=== PATIENT | male | born 1955 | race Caucasian/White ===

== ENCOUNTER 2022-06-08 13:54 | Emergency (ER) | payer MEDICARE, OTHER ==
[2022-06-08 14:31] VITALS: TEMP 98.2
[2022-06-08] MEDS ORDERED: SODIUM CHLORIDE 0.9% 1,000 ML IV STA ×2 (14:53→15:57)
--- NOTE | 2022-06-08 15:10 | ED ---
General Adult HPI - General Chief complaint: GI Bleed Stated complaint: Blood in stool Time Seen by Provider: 06/08/22 14:34 Source: patient, RN notes reviewed, old records reviewed Mode of arrival: ambulatory Limitations: no limitations - History of Present Illness Initial comments: Patient is a 67-year-old male with past medical history remarkable for diabetes, who presents emergency Department complaining of upper quadrant abdominal discomfort as well as dark tarry stools for 1-2 days. States the abdominal discomfort started yesterday, and he had 2 episodes of darker, tar-like stools. No history of blood in the stool. No history of being on blood thinners. No history of GI bleed. Denies any nausea or vomiting. Denies any kev abdominal pain. States is more significant discomfort in sensation. Denies any urinary complaints at this time. States the stools are normal, formed. Endorses mild weakness, denies lightheadedness. Denies shortness of breath, chest pain. Denies any other acute complaint. He presents for further evaluation at this time. Endorses decreased appetite and possible dehydration this time as well. - Related Data Home Medications Medication Instructions Recorded Confirmed Empagliflozin [Jardiance] 25 mg PO DAILY 06/08/22 06/08/22 Fenofibrate 160 mg PO DAILY 06/08/22 06/08/22 Glucosam/Dat-Msm1/C/Mitchell/Bosw 1 tab PO HS 06/08/22 06/08/22 [Eawrqqkstik-Mezmmjmbxie-JHP Tb] Insulin Glargine,Hum.rec.anlog 15 - 16 units SQ HS 06/08/22 06/08/22 [Lantus Solostar Pen] Montelukast Sodium [Singulair] 10 mg PO HS 06/08/22 06/08/22 [place]-3 Fatty Acids/Fish Oil 1 cap PO HS 06/08/22 06/08/22 [[place]-3 Fish Oil 1,200 mg Sfgl] Simvastatin [Zocor] 10 mg PO HS 06/08/22 06/08/22 glipiZIDE 10 mg PO BID 06/08/22 06/08/22 metFORMIN HCL [Glucophage] 1,000 mg PO BID 06/08/22 06/08/22 Previous Rx's Medication Instructions Recorded Pantoprazole [Protonix] 40 mg PO DAILY 7 Days #7 tab 06/08/22 Allergies Allergy/AdvReac Type Severity Reaction Status Date / Time No Known Allergies Allergy Verified 06/08/22 15:31 Review of Systems ROS Statement: Those systems with pertinent positive or pertinent negative responses have been documented in the HPI. Review of Systems: CONST: Denies fever EYES: Denies blurry vision ENT: Denies nasal congestion C/V: Denies Chest pain RESP: Denies shortness of breath GI: Endorses abdominal discomfort. : Denies dysuria SKIN: Denies rash. MSK: Denies joint pain. NEURO: Denies headache ROS Other: All systems not noted in ROS Statement are negative. Past Medical History Past Medical History: Diabetes Mellitus History of Any Multi-Drug Resistant Organisms: None Reported Past Surgical History: Orthopedic Surgery Additional Past Surgical History / Comment(s): ACL repair left leg, distal fibula surgery, bilatal bicep tendon repair, umbilical hernia surgery, inguinal hernia repair, right knee surgery, cyst on testical removed, Past Psychological History: Unable to Obtain Smoking Status: Never smoker Past Alcohol Use History: Occasional Past Drug Use History: None Reported General Exam - General Exam Comments Initial Comments: General: Appears in no acute distress. HEAD: Normal with no signs of head trauma. EYES: PERRLA, EOMI, conjunctiva normal, no discharge. ENT: Hearing grossly intact, normal oropharynx. Dry mucous membranes. RESPIRATORY: Clear breath sounds bilaterally. No wheezes, rales, or rhonchi. C/V: Regular rate and rhythm. S1 and S2 auscultated, no edema, peripheral pulses 2+ and intact throughout ABD: Abdomen is soft, nondistended. Mildly discomforting on palpation left lower quadrant but no obvious guarding, peritoneal signs, rebound tenderness. No CVA tenderness to percussion. Rectal exam performed in the presence of a staff member. Good rectal tone. No gross blood. No hemorrhoids. Stool was light brown in color. EXT: Normal range of motion, no obvious deformity SKIN: No rashes or lesions observed on exposed skin. NEURO: Alert and oriented 4. No focal deficits. Limitations: no limitations Course Vital Signs 06/08/22 06/08/22 14:24 18:00 Temperature 98.2 F 98.2 F Pulse Rate 81 76 Respiratory 18 16 Rate Blood Pressure 120/71 99/64 O2 Sat by Pulse 97 95 Oximetry Medical Decision Making - Medical Decision Making Based on the patient's presentation and physical exam, patient presented with left lower quadrant abdominal discomfort as well as darker stools that he describes as tolerated over the last day. States he does have less of an oral intake the last few days and I'm concerned for mild dehydration as well. Does have a history diverticulosis. Is not on blood thinners. I'm concerned for possible intra-abdominal pathology such as diverticulitis at this time. We will obtain abdominal laboratory studies to start, and unlikely CT imaging. He was in agreement this plan. Declines analgesia medications at this time. He will receive IV fluids. Vital signs within acceptable limits. EKG showed no signs of acute ischemia. Patient's laboratory studies returned and were remarkable for a normocytic anemia with hemoglobin was 12. No known comparison. Patient has a lactic acidosis of 3.3 likely secondary to dehydration. 4+ glucose in the urine. Occult blood is positive. He was a long delay in obtaining CT abdomen and pelvis secondary to higher acuity patients regarding the CT scanner. When it was finally obtained, it was interpreted by myself as showing no obvious hemorrhage. No obvious acute intrapelvic process. Radiology did note possible esophagitis as well as diverticulosis without diverticulitis. On reevaluation, patient's lactate has been reobtained and following a 1 L fluid bolus is improved to 2.1. I did discuss with the patient the results of his imaging as well as laboratory studies. I did offer him admission for hemoglobin trending as it does appear he may have a small GI bleed. There is no kev blood on rectal exam and no obvious bleeding on CT imaging. Vital signs have remained within normal limits since arrival. He is asymptomatic and denies any weakness, shortness of breath, lightheadedness. He has no evidence of symptomatic anemia. I do believe this is reasonable at this time. Strict re turn precautions were discussed. Expressed understanding. This does include symptomatic anemia, as well as worsening bleeding. She does have a follow-up appointment already with his physician on Saturday afternoon. Is currently Saturday evening. I will provide the patient with a prescription for Protonix. I instructed the patient to follow up with their PCP in the next 1-3 days. I provided contact information for follow up with GI. I explained that the patient should return to the emergency department if they experience any worsening symptoms. Strict return precautions were discussed with the patient. The patient expressed understanding of these instructions. I answered all questions that the patient had. The patient was discharged home in good condition with their prescriptions and follow up information. - Lab Data Result diagrams: 06/08/22 14:55 06/08/22 14:55 Lab Results 06/08/22 06/08/22 06/08/22 Range/Units 14:55 14:55 14:55 WBC 6.0 (3.8-10.6) k/uL RBC 3.81 L (4.30-5.90) m/uL Hgb 12.0 L (13.0-17.5) gm/dL Hct 34.9 L (39.0-53.0) % MCV 91.6 (80.0-100.0) fL MCH 31.4 (25.0-35.0) pg MCHC 34.3 (31.0-37.0) g/dL RDW 12.7 (11.5-15.5) % Plt Count 359 (150-450) k/uL MPV 7.6 Neutrophils % 66 % Lymphocytes % 20 % Monocytes % 7 % Eosinophils % 4 % Basophils % 1 % Neutrophils # 3.9 (1.3-7.7) k/uL Lymphocytes # 1.2 (1.0-4.8) k/uL Monocytes # 0.4 (0-1.0) k/uL Eosinophils # 0.3 (0-0.7) k/uL Basophils # 0.1 (0-0.2) k/uL PT 10.2 (9.0-12.0) sec INR 1.0 (<1.2) APTT 22.1 (22.0-30.0) sec Sodium (137-145) mmol/L Potassium (3.5-5.1) mmol/L Chloride (98-107) mmol/L Carbon Dioxide (22-30) mmol/L Anion Gap mmol/L BUN (9-20) mg/dL Creatinine (0.66-1.25) mg/dL Est GFR (CKD-EPI)AfAm (>60 ml/min/1.73 sqM) Est GFR (CKD-EPI)NonAf (>60 ml/min/1.73 sqM) Glucose (74-99) mg/dL Lactic Ac Sepsis Rflx Plasma Lactic Acid Shahid (0.7-2.0) mmol/L Calcium (8.4-10.2) mg/dL Total Bilirubin (0.2-1.3) mg/dL AST (17-59) U/L ALT (4-49) U/L Alkaline Phosphatase (38-126) U/L Total Protein (6.3-8.2) g/dL Albumin (3.5-5.0) g/dL Amylase (30-110) U/L Lipase (23-300) U/L Urine Color Light Yellow Urine Appearance Clear (Clear) Urine pH 5.0 (5.0-8.0) Ur Specific [place] 1.031 (1.001-1.035) Urine Protein Negative (Negative) Urine Glucose (UA) 4+ H (Negative) Urine Ketones Negative (Negative) Urine Blood Negative (Negative) Urine Nitrite Negative (Negative) Urine Bilirubin Negative (Negative) Urine Urobilinogen <2.0 (<2.0) mg/dL Ur Leukocyte Esterase Negative (Negative) Stool Occult Blood (Negative) Blood Type Blood Type Confirm Blood Type Recheck Bld Type Recheck Status Antibody Screen Spec Expiration Date 06/08/22 06/08/22 06/08/22 Range/Units 14:55 14:55 14:55 WBC (3.8-10.6) k/uL RBC (4.30-5.90) m/uL Hgb (13.0-17.5) gm/dL Hct (39.0-53.0) % MCV (80.0-100.0) fL MCH (25.0-35.0) pg MCHC (31.0-37.0) g/dL RDW (11.5-15.5) % Plt Count (150-450) k/uL MPV Neutrophils % % Lymphocytes % % Monocytes % % Eosinophils % % Basophils % % Neutrophils # (1.3-7.7) k/uL Lymphocytes # (1.0-4.8) k/uL Monocytes # (0-1.0) k/uL Eosinophils # (0-0.7) k/uL Basophils # (0-0.2) k/uL PT (9.0-12.0) sec INR (<1.2) APTT (22.0-30.0) sec Sodium 135 L (137-145) mmol/L Potassium 4.7 (3.5-5.1) mmol/L Chloride 103 (98-107) mmol/L Carbon Dioxide 24 (22-30) mmol/L Anion Gap 8 mmol/L BUN 41 H (9-20) mg/dL Creatinine 0.86 (0.66-1.25) mg/dL Est GFR (CKD-EPI)AfAm >90 (>60 ml/min/1.73 sqM) Est GFR (CKD-EPI)NonAf 89 (>60 ml/min/1.73 sqM) Glucose 251 H (74-99) mg/dL Lactic Ac Sepsis Rflx Plasma Lactic Acid Shahid 3.3 H* (0.7-2.0) mmol/L Calcium 9.2 (8.4-10.2) mg/dL Total Bilirubin 0.7 (0.2-1.3) mg/dL AST 39 (17-59) U/L ALT 24 (4-49) U/L Alkaline Phosphatase 54 (38-126) U/L Total Protein 6.3 (6.3-8.2) g/dL Albumin 4.0 (3.5-5.0) g/dL Amylase 76 (30-110) U/L Lipase 210 (23-300) U/L Urine Color Urine Appearance (Clear) Urine pH (5.0-8.0) Ur Specific Living[place] (1.001-1.035) Urine Protein (Negative) Urine Glucose (UA) (Negative) Urine Ketones (Negative) Urine Blood (Negative) Urine Nitrite (Negative) Urine Bilirubin (Negative) Urine Urobilinogen (<2.0) mg/dL Ur Leukocyte Esterase (Negative) Stool Occult Blood Positive (Negative) Blood Type Blood Type Confirm Blood Type Recheck Bld Type Recheck Status Antibody Screen Spec Expiration Date 06/08/22 06/08/22 06/08/22 Range/Units 14:56 15:00 15:42 WBC (3.8-10.6) k/uL RBC (4.30-5.90) m/uL Hgb (13.0-17.5) gm/dL Hct (39.0-53.0) % MCV (80.0-100.0) fL MCH (25.0-35.0) pg MCHC (31.0-37.0) g/dL RDW (11.5-15.5) % Plt Count (150-450) k/uL MPV Neutrophils % % Lymphocytes % % Monocytes % % Eosinophils % % Basophils % % Neutrophils # (1.3-7.7) k/uL Lymphocytes # (1.0-4.8) k/uL Monocytes # (0-1.0) k/uL Eosinophils # (0-0.7) k/uL Basophils # (0-0.2) k/uL PT (9.0-12.0) sec INR (<1.2) APTT (22.0-30.0) sec Sodium (137-145) mmol/L Potassium (3.5-5.1) mmol/L Chloride (98-107) mmol/L Carbon Dioxide (22-30) mmol/L Anion Gap mmol/L BUN (9-20) mg/dL Creatinine (0.66-1.25) mg/dL Est GFR (CKD-EPI)AfAm (>60 ml/min/1.73 sqM) Est GFR (CKD-EPI)NonAf (>60 ml/min/1.73 sqM) Glucose (74-99) mg/dL Lactic Ac Sepsis Rflx Y Plasma Lactic Acid Shahid (0.7-2.0) mmol/L Calcium (8.4-10.2) mg/dL Total Bilirubin (0.2-1.3) mg/dL AST (17-59) U/L ALT (4-49) U/L Alkaline Phosphatase (38-126) U/L Total Protein (6.3-8.2) g/dL Albumin (3.5-5.0) g/dL Amylase (30-110) U/L Lipase (23-300) U/L Urine Color Urine Appearance (Clear) Urine pH (5.0-8.0) Ur Specific [place] (1.001-1.035) Urine Protein (Negative) Urine Glucose (UA) (Negative) Urine Ketones (Negative) Urine Blood (Negative) Urine Nitrite (Negative) Urine Bilirubin (Negative) Urine Urobilinogen (<2.0) mg/dL Ur Leukocyte Esterase (Negative) Stool Occult Blood (Negative) Blood Type O Negative Blood Type Confirm O Negative Blood Type Recheck No Previous Record Bld Type Recheck Status CABO Indicated Antibody Screen NEGATIVE Spec Expiration Date 06/11/2022 - 2355 12/16/22 Range/Units 18:16 WBC (3.8-10.6) k/uL RBC (4.30-5.90) m/uL Hgb (13.0-17.5) gm/dL Hct (39.0-53.0) % MCV (80.0-100.0) fL MCH (25.0-35.0) pg MCHC (31.0-37.0) g/dL RDW (11.5-15.5) % Plt Count (150-450) k/uL MPV Neutrophils % % Lymphocytes % % Monocytes % % Eosinophils % % Basophils % % Neutrophils # (1.3-7.7) k/uL Lymphocytes # (1.0-4.8) k/uL Monocytes # (0-1.0) k/uL Eosinophils # (0-0.7) k/uL Basophils # (0-0.2) k/uL PT (9.0-12.0) sec INR (<1.2) APTT (22.0-30.0) sec Sodium (137-145) mmol/L Potassium (3.5-5.1) mmol/L Chloride (98-107) mmol/L Carbon Dioxide (22-30) mmol/L Anion Gap mmol/L BUN (9-20) mg/dL Creatinine (0.66-1.25) mg/dL Est GFR (CKD-EPI)AfAm (>60 ml/min/1.73 sqM) Est GFR (CKD-EPI)NonAf (>60 ml/min/1.73 sqM) Glucose (74-99) mg/dL Lactic Ac Sepsis Rflx Plasma Lactic Acid Shahid 2.1 H* (0.7-2.0) mmol/L Calcium (8.4-10.2) mg/dL Total Bilirubin (0.2-1.3) mg/dL AST (17-59) U/L ALT (4-49) U/L Alkaline Phosphatase (38-126) U/L Total Protein (6.3-8.2) g/dL Albumin (3.5-5.0) g/dL Amylase (30-110) U/L Lipase (23-300) U/L Urine Color Urine Appearance (Clear) Urine pH (5.0-8.0) Ur Specific [place] (1.001-1.035) Urine Protein (Negative) Urine Glucose (UA) (Negative) Urine Ketones (Negative) Urine Blood (Negative) Urine Nitrite (Negative) Urine Bilirubin (Negative) Urine Urobilinogen (<2.0) mg/dL Ur Leukocyte Esterase (Negative) Stool Occult Blood (Negative) Blood Type Blood Type Confirm Blood Type Recheck Bld Type Recheck Status Antibody Screen Spec Expiration Date - EKG Data -: EKG Interpreted by Me EKG Comments: 12-lead Electrocardiogram Interpretation Note EKG was reviewed and interpreted by myself. 12-lead ECG performed at 1632 is interpreted by me as revealing normal sinus rhythm at a rate of 71 beats per minute. Hazen is normal. MI interval is 149 ms, QRS durations 114 ms, QTc is 429 ms.. There were no ST or T wave abnormalities to suggest myocardial ischemia or injury. R wave progression across the precordium was satisfactory. By my interpretation this EKG is non-diagnostic for acute ischemia. No prior EKG for comparison. Disposition Clinical Impression: GI bleed, Dehydration Disposition: HOME SELF-CARE Condition: Good Instructions (If sedation given, give patient instructions): Gastrointestinal Bleeding (ED) Prescriptions: Pantoprazole [Protonix] 40 mg PO DAILY 7 Days #7 tab Is patient prescribed a controlled substance at d/c from ED?: No Referrals: Michael Lopez MD [Primary Care Provider] - 1-2 days Crissy Sharp MD [STAFF PHYSICIAN] - 1-2 days Time of Disposition: 19:25
[2022-06-08 15:20] LABS: Basophils # (A) 0.1 k/uL (0-0.2); Basophils % (A) 1 %; Eosinophils # (A) 0.3 k/uL (0-0.7); Eosinophils % (A) 4 %; HCT 34.9 % (39.0-53.0); Lymphocytes # (A) 1.2 k/uL (1.0-4.8); Lymphocytes % (A) 20 %; MCH 31.4 pg (25.0-35.0); MCHC 34.3 g/dL (31.0-37.0); MCV 91.6 fL (80.0-100.0); Mean Platelet Volume 7.6; Monocytes # (A) 0.4 k/uL (0-1.0); Monocytes % (A) 7 %; Neutrophils # (A) 3.9 k/uL (1.3-7.7); Neutrophils % (A) 66 %; Platelet Count 359 k/uL (150-450); RBC 3.81 m/uL (4.30-5.90); RDW 12.7 % (11.5-15.5)
[2022-06-08 15:30] LABS: Partial Thromboplastin Time 22.1 sec (22.0-30.0); Prothrombin Time 10.2 sec (9.0-12.0)
[2022-06-08 15:32] LABS: ALT 24 U/L (4-49); AST 39 U/L (17-59); African American GFR (CKD) >90 (>60 ml/min/1.73 sqM); Alkaline Phosphatase 54 U/L (38-126); Amylase 76 U/L (30-110); Anion Gap 8 mmol/L; Blood Urea Nitrogen 41 mg/dL (9-20); Calcium 9.2 mg/dL (8.4-10.2); Carbon Dioxide 24 mmol/L (22-30); Chloride 103 mmol/L (98-107); Glucose 251 mg/dL (74-99); Lipase 210 U/L (23-300); Non-African American GFR(CKD) 89 (>60 ml/min/1.73 sqM); Potassium 4.7 mmol/L (3.5-5.1); Sodium 135 mmol/L (137-145); Total Bilirubin 0.7 mg/dL (0.2-1.3); Total Protein 6.3 g/dL (6.3-8.2)
[2022-06-08 16:24] LABS: Appearance,Urine Clear (Clear); Bilirubin,Urine Negative (Negative); Blood,Urine Negative (Negative); Color,Urine Light Yellow; Glucose,Urine (UA) 4+ (Negative); Ketones,Urine Negative (Negative); Leukocyte Esterase,Urine Negative (Negative); Nitrite,Urine Negative (Negative); Protein,Urine Negative (Negative); Specific Gravity,Urine 1.031 (1.001-1.035); Urobilinogen,Urine <2.0 mg/dL (<2.0)
[2022-06-08] MEDS ORDERED: diphenhydrAMINE 50 MG/ML 1 ML VIAL IVP STA (16:56)
[2022-06-08] MEDS ORDERED: FAMOTIDINE 20 MG/2 ML VIAL IV STA (16:56)
[2022-06-08] MEDS ORDERED: methylPREDNISolone SOD SUCCI 125 MG/2 ML VIAL IV STA (16:56)
[2022-06-08 18:44] VITALS: BP 99/64; PULSE 76; RESP 16
--- NOTE | 2022-06-08 19:12 | CT ---
EXAMINATION TYPE: CT angio abdomen pelvis CT DLP: 1895 mGycm, Automated exposure control for dose reduction was used. DATE OF EXAM: 06/08/2022 6:17 PM COMPARISON: None. CLINICAL INDICATION:Male, 67 years old with history of gi bleed protocol and ischemic bowel eval, Cullen ck stool, and ischemic bowel evaluation. GII bleed protocol requested by Dr. Goel. TECHNIQUE: Multiple thin slice sub-millimeter images were obtained through the abdomen, pelvis, after administration of contrast. 3-D reconstructed images and maximum intensity projection images were o btained of the abdomen, pelvis CT Contrast: Contrast used:100 mL of Isovue 370 with IV Contrast, Oral contrast used: without Oral Contrast None FINDINGS: CTA Abdomen and pelvis: The abdominal aorta does not demonstrate aneurysmal dilatation. Atherosclero tic plaquing is identified within the abdominal aorta. The origins of the superior mesenteric artery , renal arteries, inferior mesenteric artery, and celiac axis are patent. The iliac vessels are norm al in morphology LOWER CHEST: No evidence of focal consolidation, pneumothorax or pleural effusion. The heart is mildl y enlarged for size. Atherosclerosis of the coronary arteries. Mild distal esophageal wall thickening up to 5 mm. LIVER: Unremarkable GALLBLADDER AND BILE DUCTS: Unremarkable. PANCREAS: Unremarkable. SPLEEN: Unremarkable. ADRENAL GLANDS: Unremarkable. KIDNEYS AND URETERS: No evidence of hydronephrosis or renal calculus. Left renal cyst. Peripelvic lef t renal cysts are present. PELVIS BLADDER: Unremarkable REPRODUCTIVE: Unremarkable. ABDOMEN & PELVIS STOMACH AND BOWEL: No evidence of bowel obstruction. Scattered clonic diverticula. PERITONEUM: No evidence of pneumoperitoneum or free fluid. Scattered pelvic phleboliths are present. VASCULATURE: No evidence of aortic aneurysm. MUSCULOSKELETAL: No acute osseous abnormalities, remote injury to the pubic symphysis on the left pos sibly muscle injury to origin. LYMPH NODES: No gross evidence for lymphadenopathy. SOFT TISSUE/ABDOMINAL WALL: Unremarkable IMPRESSION 1. No evidence for gastrointestinal hemorrhage. There remains concern consider nuclear medicine tagg ed red blood cell scan. 2. No evidence of vascular occlusion or aneurysm. 3. Atherosclerotic disease involving abdominal aorta and lower extremity vasculature. 4. Circumferential wall thickening the distal esophagus correlate for esophagitis. 5. Extensive colonic diverticulosis.
== END 2022-06-08 19:42 | disposition home or self-care (01) ==
LOC: EC 13:54
DX: K92.2 Gastrointestinal hemorrhage, unspecified (principal); E86.0 Dehydration; E11.9 Type 2 diabetes mellitus without complications; Z79.4 Long term (current) use of insulin; Z79.899 Other long term (current) drug therapy
CPT/HCPCS: 36415; 93005; 86900; 86901; 80053; 82150; 83605; 83690; 85025; 85610; 85730; 86850; 82272; 81003; 74174; 99285; 96374; 96375 ×2; 96361 ×2; J1200; J2930; Q9967

== ENCOUNTER 2022-07-20 11:37 | Day surgery (SDC) | payer MEDICARE, OTHER ==
[~2022-07-20 11:37] MED LIST: LACTATED RINGERS 1,000 ML IV SCH; LIDOCAINE 1% (10MG/ML) FOR IV START INTRADERMA PRN
[2022-07-20 13:35] VITALS: RESP 16; TEMP 97.4
[2022-07-20 13:39] LABS: Glucose,Whole Blood 105 mg/dL (70-110)
[2022-07-20] MEDS ORDERED: PROPOFOL 10 MG/ML 20 ML VIAL IV ONE (14:14)
[2022-07-20] MEDS ORDERED: LIDOCAINE 2% INJ 20 MG/ML (2 ML VIAL) ONE (14:14)
--- NOTE | 2022-07-20 14:25 | P.PCN ---
Date of Procedure: 07/20/22 Procedure(s) Performed: BRIEF HISTORY: Patient is a 67-year-old, pleasant, white female female scheduled for an upper endoscopy as a part of evaluation of black tarry stools for about a month ago. He came to the emergency room and was noted to have a hemoglobin of 10 g/dL he can be suspicious for acute upper GI bleed. He was started on Protonix and iron supplements and was discharged home and he is scheduled for an outpatient EGD today.. He was taking Motrin outpatient basis which she quit a month ago. PROCEDURE PERFORMED: Esophagogastroduodenoscopy with biopsy. PREOPERATIVE DIAGNOSIS: Recent upper GI bleed. IV sedation per anesthesia. PROCEDURE: After informed consent was obtained, the patient was brought into the endoscopy unit. IV sedation was administered by Anesthesia under continuous monitoring. Initially the Olympus GIF-140 video endoscope was inserted into the mouth. Esophagus intubated without any difficulty. It was gradually advanced into the stomach and duodenum and carefully examined. The bulb of the duodenum appeared normal. There was a duodenal stricture along the duodenal sweep noted and the scope could not be advanced beyond the stricture. No ulcerations identified at the site of duodenal stricture. The scope at this time was withdrawn to the stomach, adequately insufflated with air, and upon careful examination, mucosa of the antrum, had patchy areas of erythema and biopsies were done from this area. Mucosa of the body, cardia and the fundus appeared no rmal. The scope was then withdrawn into the esophagus. The GE junction was located at 39 cm from the incisors. Small hiatal hernia noted. The esophagus appeared normal. There were no erosions or ulcerations seen and the patient tolerated the procedure well. IMPRESSION: 1. Duodenal stricture along the duodenal sweep with no active ulceration. 2. Mild antral gastritis. 3. Small hiatal hernia RECOMMENDATIONS: The findings of this examination were discussed with the patient as well as his family. He was advised to continue with Protonix 40 mg daily and avoid NSAIDs. Lately he had duodenal ulcer at the site of the duodenal stricture which appears to have healed currently. Follow with the biopsy results..
[2022-07-20 14:46] VITALS: BP 122/73; PULSE 53
== END 2022-07-20 15:26 | disposition home or self-care (01) ==
LOC: ORWHC2ENDO 11:37
PROVIDERS: ATTEND Internal Medicine Gastroenterology
DX: K29.50 Unspecified chronic gastritis without bleeding (principal); K31.5 Obstruction of duodenum; K44.9 Diaphragmatic hernia without obstruction or gangrene; E78.5 Hyperlipidemia, unspecified; E11.9 Type 2 diabetes mellitus without complications; K21.9 Gastro-esophageal reflux disease without esophagitis; Z79.899 Other long term (current) drug therapy
CPT/HCPCS: 43239; J2704; J2001; 88305

== ENCOUNTER → 2024-01-20 | Outpatient (CLI) | payer MEDICARE, OTHER ==
--- NOTE | 2024-01-26 19:14 | CT ---
EXAMINATION TYPE: CT sinus wo con DATE OF EXAM: 01/20/2024 COMPARISON: None HISTORY: 68-year-old male J32.2, Chronic ethmoidal sinusitis CT DLP: 474 mGycm Automated exposure control for dose reduction was used. TECHNIQUE: Noncontrast axial views of the paranasal sinuses were obtained. Coronal and sagittal refor matted images were obtained. FINDINGS: PARANASAL SINUSES: Scattered trace mucosal thickening in the maxillary sinuses especially along the floors of the maxill maría sinuses. Trace mucosal thickening ethmoid air cells. Frontal and sphenoid sinuses are relatively pneumatized. There is no air-fluid level. Reactive pancho- osteogenesis is not seen. There is no destruction of the osseous high of the paranasal sinuses. THE NASAL CAVITY: The osteomeatal complexes are patent. There is rightward nasal septal deviation. The brain and orbits are normal in appearance. Mastoid air cells and middle ear cavities are well pneumatized. Reformatted images confirm above findings. IMPRESSION: 1. Scattered trace mucosal thickening maxillary sinuses and ethmoid air cells. 2. Rightward nasal septal deviation.
== END | disposition home or self-care (01) ==
LOC: RADCTMAIN 11:46
PROVIDERS: ATTEND Otolaryngology
DX: J32.2 Chronic ethmoidal sinusitis (principal); J34.2 Deviated nasal septum; J34.89 Other specified disorders of nose and nasal sinuses
CPT/HCPCS: 70486

== ENCOUNTER 2024-09-11 06:46 | Day surgery (SDC) | payer MEDICARE, OTHER ==
[~2024-09-11 06:46] MED LIST changes: -LACTATED RINGERS 1,000 ML IV SCH
[2024-09-11 07:12] VITALS: TEMP 98
[2024-09-11] MEDS: IV FLUID CONTINUATION 1,000 ML IV ONE (07:21)
[2024-09-11] MEDS: LACTATED RINGERS 1,000 ML IV SCH (07:21)
[2024-09-11] MEDS ORDERED: LIDOCAINE 1% INJ 10MG/ML (20 ML MDV) ONE (07:57)
[2024-09-11] MEDS ORDERED: PROPOFOL 10 MG/ML 20 ML VIAL IV ONE (07:57)
--- NOTE | 2024-09-11 08:27 | P.PCN ---
Date of Procedure: 09/11/24 Procedure(s) Performed: Brief history: Patient is a pleasant 69-year-old white male scheduled for an elective upper endoscopy as well as colonoscopy as a part of evaluation of family history of GERD, screening for history of colon polyps and family history of colon cancer. His dad was diagnosed with colon cancer at age 52. Procedure performed: Esophagogastroduodenoscopy with biopsy Colonoscopy with snare polypectomy Preoperative diagnosis: Longstanding history of GERD Screening for history of colon polyps and family history of colon cancer Anesthesia: MAC Procedure: After informed consent was obtained from the patient was brought into the endoscopy unit and IV sedation was administered by anesthesia under continuous monitoring. Initially upper endoscopy was done. The Olympus GF 160 video endoscope was inserted inserted into the mouth and esophagus intubated without any difficulty and was gradually advanced into the stomach and duodenum and carefully examined. The bulb of the duodenum appeared normal. Along the duodenal sweep there was a benign-appearing duodenal stricture and the scope could not be advanced to the stricture. The scope was then withdrawn into the stomach adequately insufflated with air and upon careful examination the antrum had multiple small superficial antral ulcers measuring 5 to 6 mm in size and gastritis and biopsies were done from this area. Mucosa of thed body, cardia and fundus appeared normal. The scope was then withdrawn into the esophagus. The GE junction was located at 40 cm to the incisors. It appeared regular with 2 erosions consistent with LA grade B reflux esophagitis. Rest of the esophagus appeared normal. Patient tolerated the procedure well. At this time the patient continued to remain sedation. Initial digital rectal examination was normal. Olympus CF 160 video colonoscope was then inserted into the rectum and gradually advanced to the cecum without any difficulty. Careful examination was performed as the scope was gradually being withdrawn. The prep was excellent. The cecum, ascending colon, appeared normal. The transverse colon there was a 5 mm polyp that was removed by cold snare polypectomy. Scattered left-sided diverticulosis seen. Rest of the transverse colon, descending colon, sigmoid colon and rectum appeared normal. Retroflexion was performed in the rectum and grade 2 internal hemorrhoids were noted. Patient tolerated the procedure well. Impression: 1. Upper endoscopy revealed benign-appearing duodenal stricture along the duodenal sweep, multiple small antral ulcers measuring between 5 to 6 mm in size and antral erosive gastritis, LA grade B reflux esophagitis 2. Colonoscopy revealed 5 mm transverse colon polyp status post cold snare polypectomy, scattered left-sided diverticulosis and small internal hemorrhoids Recommendations: Findings of this examination were discussed with the patient as well as his family. He was advised to follow-up with the biopsy results. Recommend a repeat colonoscopy in 5 years because of family history of colon cancer.
[2024-09-11 08:46] VITALS: BP 113/72; PULSE 54; RESP 14
== END 2024-09-11 09:15 | disposition home or self-care (01) ==
LOC: ORWHC2ENDO 06:46
PROVIDERS: ATTEND Internal Medicine Gastroenterology
DX: Z12.11 Encounter for screening for malignant neoplasm of colon (principal); K21.00 Gastro-esophageal reflux disease with esophagitis, without bleeding; D12.3 Benign neoplasm of transverse colon; K25.9 Gastric ulcer, unspecified as acute or chronic, without hemorrhage or perforation; K29.50 Unspecified chronic gastritis without bleeding; K31.5 Obstruction of duodenum; K57.30 Diverticulosis of large intestine without perforation or abscess without bleeding; E11.9 Type 2 diabetes mellitus without complications; Z86.0100 Personal history of colon polyps, unspecified; Z79.899 Other long term (current) drug therapy; Z80.0 Family history of malignant neoplasm of digestive organs
CPT/HCPCS: 88305; 45385; 43239; J2003; J2704